=== PATIENT | female | born 1970 | race Caucasian/White ===

== ENCOUNTER 2018-09-01 18:34 | Emergency (ER) | payer SELFPAY ==
[~2018-09-01] VITALS: Ht 162.6 cm; Wt 98.4 kg
[2018-09-01 18:42] VITALS: Ht 162.6 cm; Wt 98.4 kg
[2018-09-01 21:08] VITALS: BP 129/65
== END 2018-09-01 21:08 | disposition home or self-care (01) ==
LOC: ED 18:34
DX: L02.31 Cutaneous abscess of buttock (principal)
CPT/HCPCS: J2001

== ENCOUNTER 2018-09-03 08:53 | Emergency (ER) | payer SELFPAY ==
[~2018-09-03] VITALS: Ht 162.6 cm; Wt 96.8 kg
[2018-09-03 09:46] VITALS: BP 135/80
== END 2018-09-03 09:44 | disposition home or self-care (01) ==
LOC: ED 08:53
DX: L05.01 Pilonidal cyst with abscess (principal); I10 Essential (primary) hypertension